=== PATIENT | male | born 2000 | race Caucasian/White ===

== ENCOUNTER 2022-01-21 14:32 | Emergency (ER) | payer SELFPAY ==
[~2022-01-21] VITALS: Ht 170.1 cm; Wt 74.8 kg
== END 2022-01-21 16:07 | disposition home or self-care (01) ==
LOC: ED 14:32
DX: J10.1 Influenza due to other identified influenza virus with other respiratory manifestations (principal); Z20.822 Contact with and (suspected) exposure to COVID-19